=== PATIENT | male | born 1990 | race Two or more races ===

== ENCOUNTER 2019-03-02 09:37 | Emergency (ER) | payer OTHER ==
--- NOTE | 2019-03-02 09:50 | ER Document Report ---
ED Medical Screen (RME) - General Chief Complaint: Abdominal Pain Stated Complaint: ABDOMINAL PAIN Time Seen by Provider: 03/02/19 09:42 Mode of Arrival: Ambulatory Information source: Patient Notes: 28-year-old male presented to ED complaining of periumbilical abdominal pain. He states he had some bleeding from his umbilical cord 3 days ago lasted 2 days then that stopped then yesterday he started with the abdominal pain surrounding his and umbilicus. He states he had some nausea yesterday but none today. When palpated his abdomen is tender in a [place] about 5 inches out from his umbilicus in all directions. He does have bowel sounds that are active. He states he has not had a bowel movement in 2 days. Patient is alert oriented respirations regular and unlabored speaking in full sentences. He states he smokes about 3 cigarettes a day drinks twice a week does not do drugs and is a student [employer] [place] [employer]. I have greeted and performed a rapid initial assessment of this patient. A comprehensive ED assessment and evaluation of the patient, analysis of test results and completion of medical decision making process will be conducted by an additional ED providers. Dictation of this chart was performed using voice recognition software; therefore, there may be some unintended grammatical errors. TRAVEL OUTSIDE OF THE [place] IN LAST 30 DAYS: No - Related Data Allergies/Adverse Reactions: No Known Allergies Allergy (Verified 03/02/19 09:38) Past Medical History - Social History Frequency of alcohol use: Social Drug Abuse: None Renal/ Medical History: Denies: Hx Peritoneal Dialysis Physical Exam - Vital signs Vitals: Temp Pulse Resp BP Pulse Ox 97.9 F 68 18 140/80 H 98 03/02/19 09:41 03/02/19 09:41 03/02/19 09:41 03/02/19 09:41 03/02/19 09:41 Course - Vital Signs Vital signs: Temp Pulse Resp BP Pulse Ox 97.9 F 68 18 140/80 H 98 03/02/19 09:41 03/02/19 09:41 03/02/19 09:41 03/02/19 09:41 03/02/19 09:41
[2019-03-02 10:19] LABS: ABSOLUTE EOSINOPHILS # (AUTO) 0.1 10^3/uL (0.0-0.6); ABSOLUTE LYMPHOCYTES (AUTO) 1.9 10^3/uL (0.5-4.7); ABSOLUTE MONOCYTES (AUTO) 0.2 10^3/uL (0.1-1.4); ABSOLUTE NEUT (AUTO) 2.9 10^3/uL (1.7-8.2); BASOPHILS % (AUTO) 0.6 % (0-2); EOSINOPHILS % (AUTO) 2.7 % (0-6); HEMATOCRIT 42.4 % (37.9-51.0); HEMOGLOBIN 14.8 g/dL (13.5-17.0); LYMPHOCYTES % (AUTO) 37.1 % (13-45); MEAN CORPUSCULAR HEMOGLOBIN 29.7 pg (27.0-33.4); MEAN CORPUSCULAR HGB CONC 34.9 g/dL (32.0-36.0); MEAN CORPUSCULAR VOLUME 85 fl (80-97); MONOCYTES % (AUTO) 3.9 % (3-13); PLATELET COUNT 210 10^3/uL (150-450); RED BLOOD COUNT 4.97 10^6/uL (4.35-5.55); RED CELL DISTRIBUTION WIDTH 12.3 % (11.5-14.0); SEGMENTED NEUTROPHILS % (AUTO) 55.7 % (42-78); TOTAL CELLS COUNTED % (AUTO) 100 %; WHITE BLOOD COUNT 5.3 10^3/uL (4.0-10.5)
[2019-03-02 10:27] LABS: APPEARANCE,URINE CLEAR; BILIRUBIN,URINE NEGATIVE (NEGATIVE); COLOR,URINE YELLOW; GLUCOSE, URINE NEGATIVE (NEGATIVE); KETONES,URINE TRACE mg/dL (NEGATIVE); LEUKOCYTE ESTERASE,URINE NEGATIVE (NEGATIVE); NITRITE,URINE NEGATIVE (NEGATIVE); PROTEIN,URINE NEGATIVE (NEGATIVE); URINE SPECIFIC GRAVITY 1.026; UROBILINOGEN,URINE NEGATIVE mg/dL (<2.0)
[2019-03-02 10:37] LABS: ALANINE AMINOTRANSFERASE 32 U/L (21-72); ALBUMIN 4.7 g/dL (3.5-5.0); ALKALINE PHOSPHATASE 62 U/L (38-126); ANION GAP 11 (5-19); ASPARTATE AMINO TRANSFERASE 24 U/L (17-59); BILIRUBIN,DIRECT 0.2 mg/dL (0.0-0.4); BILIRUBIN,TOTAL 0.9 mg/dL (0.2-1.3); BLOOD UREA NITROGEN 15 mg/dL (7-20); CALCIUM 9.9 mg/dL (8.4-10.2); CARBON DIOXIDE 30 mmol/L (22-30); CHLORIDE 102 mmol/L (98-107); GLUCOSE 99 mg/dL (75-110); POTASSIUM 4.2 mmol/L (3.6-5.0); SODIUM 142.8 mmol/L (137-145); TOTAL PROTEIN 8.1 g/dL (6.3-8.2)
[2019-03-02] MEDS ORDERED: MORPHINE SULFATE 10 MG/ML INJ IV ONE (10:43)
--- NOTE | 2019-03-02 10:47 | ER Document Report ---
ED General - General Chief Complaint: Abdominal Pain Stated Complaint: ABDOMINAL PAIN Time Seen by Provider: 03/02/19 09:42 Primary Care Provider: ARJUN REES [Primary Care Provider] - Follow up as needed Mode of Arrival: Ambulatory Notes: Healthy 20-year-old male presents to the emergency department with chief complaint of periumbilical abdominal pain. He has had umbilical bleeding for the past 3 days that stopped yesterday. After that occurred he started having abdominal pain in that area. He has not had a bowel movement in the last 2.5 days, and has been complaining of nausea but no vomiting. Appetite has been normal and he is taking fluids without problem. He denies any fevers or chills or recent illness, shortness of breath or chest pain, denies flank pain, denies urinary symptoms. TRAVEL OUTSIDE OF THE [place] IN LAST 30 DAYS: No - Related Data Allergies/Adverse Reactions: No Known Allergies Allergy (Verified 03/02/19 09:38) Past Medical History - General Information source: Patient - Social History Smoking Status: Current Every Day Smoker Frequency of alcohol use: Social Drug Abuse: None Family History: None Patient has suicidal ideation: No Patient has homicidal ideation: No Renal/ Medical History: Denies: Hx Peritoneal Dialysis Review of Systems - Review of Systems Constitutional: See HPI EENT: No symptoms reported Cardiovascular: See HPI Respiratory: See HPI Gastrointestinal: See HPI Genitourinary: No symptoms reported Male Genitourinary: No symptoms reported Musculoskeletal: No symptoms reported Skin: No symptoms reported Hematologic/Lymphatic: No symptoms reported Neurological/Psychological: No symptoms reported Physical Exam - Vital signs Vitals: Temp Pulse Resp BP Pulse Ox 97.9 F 68 18 140/80 H 98 03/02/19 09:41 03/02/19 09:41 03/02/19 09:41 03/02/19 09:41 03/02/19 09:41 - Notes Notes: PHYSICAL EXAMINATION: Reviewed vital signs and charting by RN GENERAL: Alert, interacts well. No acute distress. HEAD: Normocephalic, atraumatic. EYES: Pupils equal and round. Extraocular movements intact. ENT: Oral mucosa moist, tongue midline. NECK: Full range of motion. Trachea midline. LUNGS: Clear to auscultation bilaterally, no wheezes, rales, or rhonchi. No respiratory distress. HEART: Regular rate and rhythm. No murmur ABDOMEN: Distended, hyperactive bowel sounds, some mild involuntary guarding, acute tenderness to light palpation periumbilical to the epigastrium EXTREMITIES: Moves all 4 extremities spontaneously. No edema, No cyanosis. PSYCH: Normal affect, normal mood. SKIN: Warm, dry, normal turgor. No rashes or lesions noted. Course - Re-evaluation Re-evalutation: 03/02/19 10:46 Lab work all within normal limits, no leukocytosis, afebrile, no clear evidence of infectious process. Acute abdominal series showed a large stool burden. Patient is acutely tender and mildly guarding so I did move ahead and get a CT abdomen/pelvis with IV contrast. Patient is in pain so I gave him morphine 2 mg IV once. 03/02/19 11:54 CT abdomen/pelvis negative for any acute abnormality to include SBO, free fluid, or concerning surgical pathology. Patient's abdominal pain most likely explained by large stool burden. I will give him a prescription for docusate and encouraged him to take MiraLAX. All lab work within normal limits, vital signs within normal limits. At this time patient is stable for discharge. - Vital Signs Vital signs: Temp Pulse Resp BP Pulse Ox 97.9 F 68 18 140/80 H 98 03/02/19 09:41 03/02/19 09:41 03/02/19 09:41 03/02/19 09:41 03/02/19 09:41 - Laboratory Result Diagrams: 03/02/19 09:50 03/02/19 09:50 Laboratory results interpreted by me: 03/02/19 09:50 Urine Ketones TRACE H Discharge - Discharge Clinical Impression: Abdominal pain Qualifiers: Abdominal location: periumbilical Qualified Code(s): R10.33 - Periumbilical pain Constipation Qualifiers: Constipation type: unspecified constipation type Qualified Code(s): K59.00 - Constipation, unspecified Condition: Good Disposition: HOME, SELF-CARE Instructions: Abdominal Pain ([facility]), Antinausea Medication ([facility]) Additional Instructions: Your work-up today did not reveal anything concerning. Your lab work was all within normal limits and the CT of your abdomen and pelvis did not show any dangerous surgical condition or any concerning medical condition. You do have a large stool burden which could explain your abdominal pain. There was no evidence of small bowel obstruction. I have given you a prescription for something of docusate which you should take 100 mg 2 times per day. Also, purchase some xgki-mic-eaalncz MiraLAX and take [address] and 1 L of fluids and drink that. If you develop any bloody vomitus, are unable to have a bowel movement over the next several days, have loss of appetite with the vomiting, develop a fever, have intractable nausea please return to the emergency department for reevaluation. Referrals: [facility] [[facility]] - Follow up as needed
--- NOTE | 2019-03-02 10:48 | RADIOLOGY REPORT (SQ) ---
EXAM DESCRIPTION: ACUTE ABDOMEN SERIES COMPLETED DATE/TIME: 03/02/2019 10:20 am REASON FOR STUDY: pain around umbilicus, blood umbilicus 3 days ago COMPARISON: None. NUMBER OF VIEWS: Three views. TECHNIQUE: Frontal chest, supine abdomen and upright/decubitus abdomen radiographic images acquired. LIMITATIONS: None. FINDINGS: CHEST: Lungs clear of infiltrates. FREE AIR: None. No abnormal gas collections. BOWEL GAS PATTERN: General paucity of small bowel gas, a nonspecific pattern. There is a moderate bu rden of stool in the left and right colon with gas present to the rectum. CALCIFICATIONS: No suspicious calcifications. HARDWARE: None in the abdomen. SOFT TISSUES: No gross mass or suggestion of organomegaly. BONES: No acute fracture. No worrisome bone lesions. OTHER: No other significant finding. IMPRESSION: No acute abnormality of the lungs. General paucity of small bowel gas, a nonspecific pat tern. No obvious fluid distended loops of bowel to suggest obstruction. There is a moderate burden of stool in the left and right colon with gas present to the rectum. No free air in the abdomen. TECHNICAL DOCUMENTATION: JOB ID: [id number] [employer]- All Rights Reserved Reading location - IP/workstation name: [email or web address]
--- NOTE | 2019-03-02 11:23 | RADIOLOGY REPORT (SQ) ---
EXAM DESCRIPTION: CT ABD/PELVIS WITH IV ONLY COMPLETED DATE/TIME: 03/02/2019 11:09 am REASON FOR STUDY: abd pain/guarding/?SBO COMPARISON: None. TECHNIQUE: CT scan of the abdomen and pelvis performed using helical scanning technique with dynamic intravenous contrast injection. No oral contrast. Images reviewed with lung, soft tissue, and bone windows. Reconstructed coronal and sagittal MPR images reviewed. Delayed images for evaluation of the urinary system also acquired. All images stored on PACS. All CT scanners at this facility use dose modulation, iterative reconstruction, and/or weight based d osing when appropriate to reduce radiation dose to as low as reasonably achievable (ALARA). [facility]: Dose Right [facility]: CareDose [facility]: Dose Right [facility]: Teradose 4D [facility]: Stellarcasa SA CONTRAST TYPE AND DOSE: contrast/concentration: Isovue 350.00 mg/ml; Total Contrast Delivered: 100.0 ml; Total Saline Delivered: 70.0 ml RENAL FUNCTION: None required. The patient is less than 50 years old. RADIATION DOSE: CT Rad equipment meets quality standard of care and radiation dose reduction techniq ues were employed. CTDIvol: NaN - NaN mGy. DLP: 0 mGy-cm.. LIMITATIONS: None. FINDINGS: LOWER CHEST: No significant findings. No nodules or infiltrates. LIVER: Normal size. No masses. No dilated ducts. SPLEEN: Normal size. No focal lesions. PANCREAS: No masses. No significant calcifications. No adjacent inflammation or peripancreatic fluid collections. Pancreatic duct not dilated. GALLBLADDER: No identified stones by CT criteria. No inflammatory changes to suggest cholecystitis. ADRENAL GLANDS: No significant masses or asymmetry. RIGHT KIDNEY AND URETER: No solid masses. No significant calcifications. No hydronephrosis or hyd roureter. LEFT KIDNEY AND URETER: No solid masses. No significant calcifications. No hydronephrosis or hydr oureter. AORTA AND VESSELS: No aneurysm. No dissection. Renal arteries, SMA, celiac without stenosis. RETROPERITONEUM: No retroperitoneal adenopathy, hemorrhage or masses. BOWEL AND PERITONEAL CAVITY: No masses or inflammatory changes. No free fluid or peritoneal masses. APPENDIX: Normal. PELVIS: No mass. No free fluid. Normal bladder. ABDOMINAL WALL: No masses. No hernias. BONES: No significant or acute findings. OTHER: No other significant finding. IMPRESSION: No CT findings to explain umbilical pain. Normal appendix. TECHNICAL DOCUMENTATION: JOB ID: [id number] Quality ID # [id number]: Final reports with documentation of one or more dose reduction techniques (e.g., Au tomated exposure control, adjustment of the mA and/or kV according to patient size, use of iterative reconstruction technique) 2010 [employer]- All Rights Reserved Reading location - IP/workstation name: [email or web address]
[2019-03-02] MEDS ORDERED: ONDANSETRON ODT 4 MG TAB (6 TAB/ER DISP) PO PRN (11:59)
[2019-03-02 12:20] VITALS: BP 132/81
== END 2019-03-02 12:20 | disposition home or self-care (01) ==
LOC: ER 09:37
DX: K59.00 Constipation, unspecified (principal); R10.33 Periumbilical pain; R11.0 Nausea; F17.200 Nicotine dependence, unspecified, uncomplicated
CPT/HCPCS: 99284; 96374; 36415; 85025; 80053; 81001; 74022; 74177; J2270

== ENCOUNTER 2019-03-06 16:17 | Emergency (ER) | payer OTHER ==
--- NOTE | 2019-03-06 19:36 | ER Document Report ---
ED Medical Screen (RME) - General Chief Complaint: GI Bleeding Stated Complaint: ABDOMINAL PAIN Time Seen by Provider: 03/06/19 19:32 Primary Care Provider: [facility] [[facility] Provider] - Follow up as needed Mode of Arrival: Ambulatory Information source: Patient Notes: 28-year-old male presents to ED for continued abdominal pain. He states he has had some stools with liquid and formed stools but he has not had any stools in a couple days. He states he does have the pain in his abdomen again. He states he does have some blood when he has the stools but the stools are hard. He was seen in the emergency room on and diagnosed with constipation. Will repeat CBC and abdominal x-rays. I have greeted and performed a rapid initial assessment of this patient. A comprehensive ED assessment and evaluation of the patient, analysis of test results and completion of medical decision making process will be conducted by an additional ED providers. Dictation of this chart was performed using voice recognition software; therefore, there may be some unintended grammatical errors. TRAVEL OUTSIDE OF THE [place] IN LAST 30 DAYS: No - Related Data Allergies/Adverse Reactions: No Known Allergies Allergy (Verified 03/02/19 09:38) Past Medical History Renal/ Medical History: Denies: Hx Peritoneal Dialysis Physical Exam - Vital signs Vitals: Temp Pulse Resp BP Pulse Ox 98.2 F 60 18 117/81 97 03/06/19 17:01 03/06/19 17:01 03/06/19 17:01 03/06/19 17:01 03/06/19 17:01 Course - Vital Signs Vital signs: Temp Pulse Resp BP Pulse Ox 98.2 F 60 18 117/81 97 03/06/19 17:01 03/06/19 17:01 03/06/19 17:01 03/06/19 17:01 03/06/19 17:01 Doctor's Discharge - Discharge Referrals: [facility] [Primary [facility]] - Follow up as needed
--- NOTE | 2019-03-06 20:17 | RADIOLOGY REPORT (SQ) ---
EXAM DESCRIPTION: XR ABDOMEN SUPINE AND ERECT WITH CHEST (ABD ACUTE SERIES) COMPLETED DATE/TME: 03/06/2019 19:34 CLINICAL HISTORY: 28 years, Male, Abdominal pain, recent constipation, blood in stoo COMPARISON: None. FINDINGS: The lungs are clear. There are no pleural abnormalities. The cardiac silhouette and pulmonary vessels are normal. Nonobstructive bowel gas pattern. No abnormal calcifications. No acute osseous abnormality. IMPRESSION: No acute abnormality.
[2019-03-06 21:50] LABS: ABSOLUTE EOSINOPHILS # (AUTO) 0.1 10^3/uL (0.0-0.6); ABSOLUTE LYMPHOCYTES (AUTO) 2.8 10^3/uL (0.5-4.7); ABSOLUTE MONOCYTES (AUTO) 0.4 10^3/uL (0.1-1.4); ABSOLUTE NEUT (AUTO) 4.7 10^3/uL (1.7-8.2); BASOPHILS % (AUTO) 0.5 % (0-2); EOSINOPHILS % (AUTO) 1.6 % (0-6); HEMATOCRIT 40.3 % (37.9-51.0); HEMOGLOBIN 14.2 g/dL (13.5-17.0); LYMPHOCYTES % (AUTO) 34.2 % (13-45); MEAN CORPUSCULAR HEMOGLOBIN 29.5 pg (27.0-33.4); MEAN CORPUSCULAR HGB CONC 35.2 g/dL (32.0-36.0); MEAN CORPUSCULAR VOLUME 84 fl (80-97); MONOCYTES % (AUTO) 4.8 % (3-13); PLATELET COUNT 204 10^3/uL (150-450); RED CELL DISTRIBUTION WIDTH 12.3 % (11.5-14.0); SEGMENTED NEUTROPHILS % (AUTO) 58.9 % (42-78); TOTAL CELLS COUNTED % (AUTO) 100 %; WHITE BLOOD COUNT 8.1 10^3/uL (4.0-10.5)
[2019-03-06 21:57] VITALS: BP 124/76
[2019-03-06] MEDS ORDERED: DICYCLOMINE HCL 20 MG TABLET PO ONE (23:09)
--- NOTE | 2019-03-06 23:09 | ER Document Report ---
ED General - General Chief Complaint: GI Bleeding Stated Complaint: ABDOMINAL PAIN Time Seen by Provider: 03/06/19 19:32 Primary Care Provider: JOSE ISABEL MD [ACTIVE STAFF] - Follow up in 3-5 days [place] [place] [Primary Care Provider] - 03/08/19 Mode of Arrival: Ambulatory Notes: Patient is a pleasant 28-year-old male presents with complaint of abdominal pain. He states diffuse intermittent sharp and crampy type abdominal pain. Comes and goes. He was seen here several days ago for the same thing and placed on MiraLAX. He says he is been taking MiraLAX has had a few bowel movements but he says they have been few and small. He noticed today a little bit of blood in stool. He says it was not with every bowel movement. It was not a large amount of stool. He said no vomiting. Some nausea. No fevers. No history of abdominal surgeries. No other complaints at this time. Patient did have a CT scan as last visit which was negative for any acute intra-abdominal pathology. TRAVEL OUTSIDE OF THE [place] IN LAST 30 DAYS: No - Related Data Allergies/Adverse Reactions: No Known Allergies Allergy (Verified 03/02/19 09:38) Past Medical History - General Information source: Patient - Social History Smoking Status: Current Some Day Smoker Chew tobacco use (# tins/day): No Frequency of alcohol use: Social Drug Abuse: None Family History: None Patient has suicidal ideation: No Patient has homicidal ideation: No Renal/ Medical History: Denies: Hx Peritoneal Dialysis Review of Systems - Review of Systems Notes: My Normal Review Basic REVIEW OF SYSTEMS: CONSTITUTIONAL : Denies fever, chills, or sweats. Denies recent illness. EENT: Denies eye, ear, throat, or mouth pain or symptoms. Denies nasal or sinus congestion. CARDIOVASCULAR: Denies chest pain. RESPIRATORY: Denies cough, cold, or chest congestion. Denies shortness of breath, difficulty breathing, or wheezing. GASTROINTESTINAL: Abdominal pain. Some nausea. MUSCULOSKELETAL: Denies neck or back pain or joint pain or swelling. SKIN: Denies rash or skin lesions. HEMATOLOGIC : Denies easy bruising or bleeding. NEUROLOGICAL: Denies altered mental status or loss of consciousness. ALL OTHER SYSTEMS REVIEWED AND NEGATIVE. Physical Exam - Vital signs Vitals: Temp Pulse Resp BP Pulse Ox 98.2 F 60 18 117/81 97 03/06/19 17:01 03/06/19 17:01 03/06/19 17:01 03/06/19 17:01 03/06/19 17:01 - Notes Notes: General Appearance: Well nourished, alert, cooperative, no acute distress, no obvious discomfort. Well-appearing. Vitals: reviewed, See vital signs table. Head: no swelling or tenderness to the head Eyes: PERRL, EOMI, Conjuctiva clear Mouth: No decreasd moisture Throat: No tonsillar inflammation, No airway obstruction Neck: Supple, no neck tenderness Lungs: No wheezing, No rales, No rhonci, No accessory muscle use, good air exchange bilaterally. Heart: Normal rate, Regular rythm, No murmur, no rub Abdomen: Normal BS, soft, No rigidity, mild generalized abdominal tenderness to palpation, No guarding, no rebound, no abdominal masses, no organomegaly Extremities: good pulses in all extremities, no swelling or tenderness in the extremities, no edema. Skin: warm, dry, appropriate color, no rash Neuro: speech clear, oriented x 3, normal affect, responds appropriately to questions. Course - Re-evaluation Re-evalutation: 03/06/19 23:09 Patient's exam is benign. He does have some diffuse abdominal tenderness but it is not severe. His abdomen is not rigid. He did have a CT scan just a few days ago which was negative. He has no leukocytosis and his hemoglobin is stable in comparison to his labs from 4 days ago. He is afebrile. He looks well. Said no vomiting. He has had just a small amount of intermittent blood in his stool, but his guiac is negative at this time. On abdominal x-ray there is no evidence of obstruction. He still has appears to be significant stool on the x-ray itself. Suspect most likely is having pain that could be bowel spasm or bowel pain related to him taking MiraLAX being constipated. I suspect this could be leading to some the blood in stool. I informed him that there is currently no event evidence of a life-threatening or serious cause of abdominal pain at this time; however, all testing is 100% and therefore he should still have a very low threshold to return to ER if he has worsening pain, fevers, vomiting, or increasing blood in stool. I informed him if he still noticing any blood in his stool after 3 days that he should follow-up with the GI physician, Dr. Isabel, for evaluation for possible colonoscopy. I encouraged him to stop taking Metamucil and start using fiber supplementation to try to help relieve his con stipation a more gentle way. Patient agrees with plan will be discharged home. Dictation of this chart was performed using voice recognition software; therefore, there may be some unintended grammatical errors. 03/07/19 06:59 - Vital Signs Vital signs: Temp Pulse Resp BP Pulse Ox 98.5 F 64 16 124/76 99 03/06/19 21:00 03/06/19 21:00 03/06/19 21:00 03/06/19 21:00 03/06/19 21:00 - Laboratory Result Diagrams: 03/06/19 21:36 Discharge - Discharge Clinical Impression: Abdominal pain Qualifiers: Abdominal location: generalized Qualified Code(s): R10.84 - Generalized abdo javier pain Condition: Good Disposition: HOME, SELF-CARE Additional Instructions: Your blood work did not show any concerning findings. The exact cause of your abdominal pain is not 100% clear however I suspect this could be related to stool burden with recent increasing bowel spasm and pain due to MiraLAX use. Please stop using MiraLAX. Please start using qtnp-cno-vkihoxz fiber supplementation such as FiberCon or Metamucil. Please also eat dried fruits over the next few days such as dried raisins or dried cranberries or prunes. Please avoid fried foods and fatty foods. Please drink lots of water. I have prescribed a medicine called Bentyl which will help prevent your bowels from spasming which will hopefully help prevent you from having significant pain. Please return to the ER immediately if you have fevers, worsening pain, increasing blood in your stool, or if you feel that you are worsening in I have referred you to the GI physician, Dr. Isabel. Please call his office to make a follow-up appointment for reevaluation for possible colonoscopy if you are still is noticing any blood in your stool after 3 days. Please follow-up with your doctor this week for reevaluation. Prescriptions: Dicyclomine HCl [Bentyl 10 mg Capsule] 1 cap PO TID PRN #15 cap PRN Reason: abdominal pain Forms: Return to Work Referrals: [facility] [[facility]] - 03/08/19 JOSE ISABEL MD [ACTIVE STAFF] - Follow up in 3-5 days
== END 2019-03-06 23:40 | disposition home or self-care (01) ==
LOC: ER 16:17
DX: R10.84 Generalized abdominal pain (principal); K92.1 Melena; R11.0 Nausea; F17.200 Nicotine dependence, unspecified, uncomplicated; R10.817 Generalized abdominal tenderness
CPT/HCPCS: 99284; 36415; 85025; 74022; J3490